=== PATIENT | male | born 1985 | race Hispanic/Latino ===

== ENCOUNTER 2020-02-24 17:19 | Emergency (ER) | payer OTHER, SELFPAY ==
[2020-02-24 17:29] VITALS: BP 165/94; PULSE 91; RESP 18; TEMP 37; O2SAT 99; BMI 30.1
--- NOTE | 2020-02-24 17:35 | DI.RAD.S_ITS ---
PROCEDURE: XR CHEST 1V INDICATIONS: chest pain TECHNIQUE: One view of the chest was acquired. COMPARISON: None. FINDINGS: Surgical changes and devices: Cervical spinal fixation hardware. Lungs and pleura: Lungs are clear. No pleural effusions or pneumothorax. Mediastinum: Mediastinal contours appear normal. Heart size is normal. Bones and chest wall: No suspicious bony lesions. Overlying soft tissues appear unremarkable. IMPRESSION: No acute disease. Dictated by: Silvestre Patterson M.D. on 02/24/2020 at 18:26 Approved by: Silvestre Patterson M.D. on 02/24/2020 at 18:27
[2020-02-24 18:20] LABS: Add Manual Diff / Slide Review NO; Basophils Absolute Auto 100 /uL (0-100); Eosinophils Absolute Auto 100 /uL (0-450); Eosinophils Percent Auto 1.7 % (2-4); Hemoglobin 15.1 g/dL (13.5-17.5); Lymphocytes Absolute Auto 2300 /uL (1100-4500); Lymphocytes Percent Auto 30.6 % (25-40); Mean Corpuscular HGB Conc 34.3 % (30-36); Mean Corpuscular Hemoglobin 28.9 PG (26-34); Mean Corpuscular Volume 84.1 fL (80-100); Monocytes Absolute Auto 500 /uL (0-900); Monocytes Percent Auto 6.5 % (3-14); Neutrophils Absolute Auto 4600 /uL (1500-7000); Neutrophils Percent Auto 60.2 % (50-75); Platelet Count 316 X10^3/uL (150-400); Red Blood Cell Count 5.23 X10^6/uL (4.5-5.9); Red Cell Distribution Width 14.1 % (11.6-14.8); White Blood Cell Count 7.6 X10^3/uL (4.5-11.0)
[2020-02-24 18:38] LABS: Alanine Aminotransferase 44 IU/L (<50); Albumin 4.5 g/dL (3.5-5.0); Albumin Globulin Ratio 1.4 (1.0-2.8); Alkaline Phosphatase 95 U/L (38-126); Aspartate Aminotransferase 34 IU/L (17-59); BUN Creatinine Ratio 25.8 (6-22); Bilirubin Total 0.5 mg/dL (0.2-1.3); Blood Urea Nitrogen 23 mg/dL (9-20); Calcium 9.3 mg/dL (8.4-10.2); Carbon Dioxide 30 mmol/L (22-32); Chloride 103 mmol/L (98-107); Creatine Kinase 84 U/L (55-170); Estimated Glomerular Filt Rate > 60.0 mL/min (>60); Globulin 3.3 g/dL (1.7-4.1); Glucose 116 mg/dL (70-100); HEMOLYSIS < 15 (0-50); Lipase 228 U/L (23-300); Sodium 139 mmol/L (137-145); Total Protein 7.8 g/dL (6.3-8.2)
[2020-02-24 18:39] VITALS: PULSE 83; RESP 17; O2SAT 95
[2020-02-24 18:41] VITALS: BP 112/79; PULSE 77; RESP 18; O2SAT 98
[2020-02-24 18:48] LABS: Troponin I < 0.012 ng/mL (0.01-0.034)
[2020-02-24 18:50] LABS: COVID19 -Nasal RAPID Negative (Negative)
--- NOTE | 2020-02-24 18:56 | ED_ITS ---
HPI - Chest Pain General Chief Complaint: Chest Pain Stated Complaint: Chest Pain, Stabbing Pain, Hard to Breathe Time Seen by Provider: 02/24/20 18:06 Source: patient Mode of arrival: Ambulatory Limitations: no limitations History of Present Illness HPI narrative: Patient brought here by his . Third visit this week to emergency department. First 2 at [facility]. First visit on Wednesday for anxiety given Ativan and Paxil. Second visit yesterday please see notes faxed to us. Had reproducible left-sided chest pain sometimes rate has left arm. Worse with deep breath and palpation. CT scan imaging of the chest no acute process. No PE. EKG unchanged today from yesterday's EKG. Normal sinus rhyt hm. Normal EKG. Denies any primary family history of coronary disease. No aneurysms dissections or in below is a move in the lungs or legs. Patient does not take blood pressure medication or cluster medication, no history of high blood pressure or hypercholesteremia. No recent illness cough cold congestion fever chills. He had a couple episodes of severe sharp stabbing left-sided chest pain at work in this past week. It did make him tearful. Again was reproducible. At this time is not doing heavy exertional work with his employment. Is doing light duty work. No known injury. Has history of cervical spine surgery. Sometimes turning head to the right will trigger the pain in the left chest as well. No numbness tingling or weakness no syncope no diaphoresis. Patient states Wednesday he was anxious however today no anxiety. Related Data Allergies Allergy/AdvReac Type Severity Reaction Status Date / Time No Known Drug Allergies Allergy Verified 02/24/20 17:29 Review of Systems Review of Systems Narrative: GENERAL: Denies chills, fatigue, malaise, fever, sweats. HEENT: Denies sinus pain, ear pain, sore throat, difficulty swallowing RESPIRATORY: Denies dyspnea, cough CARDIOVASCULAR: Complains chest pain, denies palpitations, edema, GASTROINTESTINAL: Denies nausea, vomiting, abdominal pain, diarrhea, constipa tion, melena. : Denies dysuria, frequency, hematuria MUSCULOSKELETAL: denies muscle or bony pain SKIN: Denies rash, skin lesions NEUROLOGIC: Denies weakness, headache, numbness, change in speech, confusion PSYCHIATRIC: No SI or HI or hallucinations ROS Unobtainable: All systems reviewed & are unremarkable except as noted in HPI and below Patient History Social History Smoking Status: Never smoker Smoking Status: Never smoker Substance Use Type: marijuana Exam Narrative Exam Narrative: GENERAL: patient appears stated age. Well-nourished, well- developed patient, in no distress, not toxic not dyspneic HEAD: Normocephalic. EYES: Pupils equal round and reactive. No scleral icterus. No injection no discharge ENT: Mucous membranes moist. No drooling no tongue elevation no trismus no malocclusion NECK: Trachea midline. Non tender CARDIOVASCULAR: Regular rate and rhythm without murmurs, gallops, or rubs. Reproducible left-sided pectoral/breast tenderness on palpation deep breath and movement. RESPIRATORY: Clear to auscultation. Breath sounds equal bilaterally. No wheezes, rales, or rhonchi. GASTROINTESTINAL: Abdomen soft, non-tender, nondistended. EXTREMITIES: No gross deformities. BACK: Nontender without deformity or crepitance. No flank tenderness. NEURO: AOx4. SKIN: Warm and dry PSYCH: Not anxious, is cooperative Initial Vital Signs Initial Vital Signs: Vital Signs Temperature 98.6 F 02/24/20 17:29 Pulse Rate 91 H 02/24/20 17:29 Respiratory Rate 18 02/24/20 17:29 Blood Pressure 165/94 H 02/24/20 17:29 Pulse Oximetry 99 02/24/20 17:29 Scores HEART Score Heart Score history: Slightly Suspicious Heart Score EKG: Normal Heart Score Age: < 45 years old Heart Score risk factors: No known risk factors Heart Score troponin: < or = to normal limit Heart Score Total: 0 Course Course Course Narrative: Time 8:42 p.m.. Patient does not want to be transferred to another hospital or observed side in the hospital for chest pain. Patient de siring stress test and informed him will need to transfer from as we do not have cardiology services here on the weekend. Currently still has left-sided chest pain that is reproducible but unknown family history with his father. Discussed with patient leaving against medical advise, heart attack per minute injury. Patient is awake alert oriented x4. No altered mental status. Orders Ordered: ED Orders 02/24/20 17:35 XR chest 1V Stat EKG-12 Lead Stat 02/24/20 17:40 COVID19 Stat 02/24/20 17:45 Complete Blood Count AUTO DIFF Stat Comprehensive Metabolic Panel Stat Lipase Stat Partial Thromboplastin Time Stat Prothrombin Time INR Stat Troponin & CK Cardiac Panel Stat Discontinued Medications Ketorolac Tromethamine (Ketorolac 60 Mg/2 Ml Vial) 30 mg IV NOW ONE Stop: 02/24/20 18:57 Last Admin: 02/24/20 19:13 Dose: 30 mg Documented by: MMINOR Reevaluation(s) Reevaluation #1: Patient does not want to be admitted or transferred for further observation or stress test. Does not 1 nitro paste at this time. Desires discharge home. Reviewed leaving against medical advice with him. Please see note above. Patient is very cordial, not angry or stressed about decision making. Awake alert oriented x4 Time: 20:43 Vital Signs Vital signs: Vital Signs - 8 hr 02/24/20 17:29 02/24/20 18:39 02/24/20 18:41 Temperature 98.6 F Pulse Rate 91 H 83 77 Respiratory Rate 18 17 18 Blood Pressure 165/94 H 112/79 Pulse Oximetry 99 95 98 02/24/20 19:00 02/24/20 19:01 Temperature Pulse Rate 64 64 Respiratory Rate 20 15 Blood Pressure 108/85 Pulse Oximetry 98 97 MDM - Chest Pain Differential Diagnosis Differential diagnosis: Likely unstable angina pectoris, atypical chest pain, st elevation myocardial infarction, costochondritis and chest pain Medical Records Data Attestation: I reviewed the patient's medical records. Lab Data Attestation: I reviewed the patient's lab results. Result diagrams: 02/24/20 17:45 02/24/20 17:45 Labs: Lab Results 02/24/20 02/24/20 02/24/20 Range/Units 17:40 17:45 17:45 WBC 7.6 (4.5-11.0) X10^3/uL RBC 5.23 (4.5-5.9) X10^6/uL Hgb 15.1 (13.5-17.5) g/dL Hct 44.0 (41-53) % MCV 84.1 (80-100) fL MCH 28.9 (26-34) PG MCHC 34.3 (30-36) % RDW 14.1 (11.6-14.8) % Plt Count 316 (150-400) X10^3/uL Neut % (Auto) 60.2 (50-75) % Lymph % (Auto) 30.6 (25-40) % Pitkin % (Auto) 6.5 (3-14) % Eos % (Auto) 1.7 L (2-4) % Baso % (Auto) 1.0 (0-2) % Neut # (Auto) 4600 (0480-2709) /uL Lymph # (Auto) 2300 (3431-9234) /uL Pitkin # (Auto) 500 (0-900) /uL Eos # (Auto) 100 (0-450) /uL Baso # (Auto) 100 (0-100) /uL PT 12.6 (10.1-12.7) SECONDS INR 1.1 (0.9-1.3) APTT 38 H (26.4-36.2) SECONDS Sodium (137-145) mmol/L Potassium (3.4-5.1) mmol/L Chloride (98-107) mmol/L Carbon Dioxide (22-32) mmol/L BUN (9-20) mg/dL Creatinine (0.66-1.25) mg/dL Estimated GFR (>60) mL/min BUN/Creatinine Ratio (6-22) Glucose (70-100) mg/dL Calcium (8.4-10.2) mg/dL Total Bilirubin (0.2-1.3) mg/dL AST (17-59) IU/L ALT (<50) IU/L Alkaline Phosphatase (38-126) U/L Total Creatine Kinase (55-170) U/L CK-MB (CK-2) CK-MB (CK-2) Rel Index Troponin I (0.01-0.034) ng/mL Total Protein (6.3-8.2) g/dL Albumin (3.5-5.0) g/dL Globulin (1.7-4.1) g/dL Albumin/Globulin Ratio (1.0-2.8) Lipase (23-300) U/L COVID-19 PCR Negative (Negative) 02/24/20 Range/Units 17:45 WBC (4.5-11.0) X10^3/uL RBC (4.5-5.9) X10^6/uL Hgb (13.5-17.5) g/dL Hct (41-53) % MCV (80-100) fL MCH (26-34) PG MCHC (30-36) % RDW (11.6-14.8) % Plt Count (150-400) X10^3/uL Neut % (Auto) (50-75) % Lymph % (Auto) (25-40) % Pitkin % (Auto) (3-14) % Eos % (Auto) (2-4) % Baso % (Auto) (0-2) % Neut # (Auto) (5989-7888) /uL Lymph # (Auto) (0132-3131) /uL Pitkin # (Auto) (0-900) /uL Eos # (Auto) (0-450) /uL Baso # (Auto) (0-100) /uL PT (10.1-12.7) SECONDS INR (0.9-1.3) APTT (26.4-36.2) SECONDS Sodium 139 (137-145) mmol/L Potassium 4.0 (3.4-5.1) mmol/L Chloride 103 (98-107) mmol/L Carbon Dioxide 30 (22-32) mmol/L BUN 23 H (9-20) mg/dL Creatinine 0.89 (0.66-1.25) mg/dL Estimated GFR > 60.0 (>60) mL/min BUN/Creatinine Ratio 25.8 H (6-22) Glucose 116 H (70-100) mg/dL Calcium 9.3 (8.4-10.2) mg/dL Total Bilirubin 0.5 (0.2-1.3) mg/dL AST 34 (17-59) IU/L ALT 44 (<50) IU/L Alkaline Phosphatase 95 (38-126) U/L Total Creatine Kinase 84 (55-170) U/L CK-MB (CK-2) TNP CK-MB (CK-2) Rel Index TNP Troponin I < 0.012 (0.01-0.034) ng/mL Total Protein 7.8 (6.3-8.2) g/dL Albumin 4.5 (3.5-5.0) g/dL Globulin 3.3 (1.7-4.1) g/dL Albumin/Globulin Ratio 1.4 (1.0-2.8) Lipase 228 (23-300) U/L COVID-19 PCR (Negative) Imaging Data Chest x-ray: Radiologist's Impression: [address] [id number] ReportSigned Patient: John Spears AMR#: [id number]: 1985Acct:[id number]/Sex: 34 / MDate of Service: 02/24/20Loc: EDAccession Number: [id number] Procedure: XR chest 1V Ordering Provider: Jill Forbes MD PROCEDURE: XR CHEST 1V INDICATIONS: chest pain TECHNIQUE: One view of the chest was acquired. COMPARISON: None. FINDINGS: Surgical changes and devices: Cervical spinal fixation hardware. Lungs and pleura: Lungs are clear. No pleural effusions or pneumothorax. Mediastinum: Mediastinal contours appear normal. Heart size is normal. Bones and chest wall: No suspicious bony lesions. Overlying soft tissues appear unremarkable. IMPRESSION: No acute disease. Dictated by: Silvestre Patterson M.D. on 02/24/2020 at 18:26 Approved by: Silvestre Patterson M.D. on 02/24/2020 at 18:27 ECG Data Attestation: I personally reviewed and interpreted this ECG as follows: Interpretation: Normal sinus rhythm ventricular rate [address] elevation or depression MDM Narrative Medical decision making narrative: Patient has had 3 visits to the emergency department. This is his 3rd visit today. Troponin remains normal. Low heart score. No history of high blood pressure high cholesterol or primary family history of coronary disease. Patient is less than 45 years of age. Normal EKG. Normal troponins. Reproducible chest wall pain. Likely costochondritis. However patient desires stress test and we do not have resources here at this facility on the weekend. I did discuss this to him for transfer to another facility but he declined. Please see note above for leaving against medical advice. Implored with patient to be admitted observed or transferred for further evaluation. He refused. Discharge Plan Departure Patient Disposition: Left Against Medical Advice Clinical Impression: Chest pain Qualifiers: Chest pain type: unspecified Qualified Code(s): R07.9 - Chest pain, unspecified Activity Restrictions/Additional Instructions: Return immediately if worse or if you change your mind to be admitted or transferred. Stand Alone Forms: Against Medical Advice, Work Release Note
[2020-02-24 19:00] VITALS: PULSE 64; RESP 20; O2SAT 98
[2020-02-24 19:01] VITALS: BP 108/85; PULSE 64; RESP 15; O2SAT 97
[2020-02-24] MEDS: KETOROLAC 60 MG/2 ML VIAL 30 MG IV (19:13)
[2020-02-24 19:40] LABS: INR 1.1 (0.9-1.3); Prothrombin Time 12.6 SECONDS (10.1-12.7)
[2020-02-24 19:42] LABS: PTT Partial Thromboplastin Tim 38 SECONDS (26.4-36.2)
== END 2020-02-24 21:01 | disposition left against medical advice (07) ==
PROVIDERS: Emergency Medicine; Emergency Provider Emergency Medicine
DX: R07.9 Chest pain, unspecified (principal)
CPT/HCPCS: 36415; 71045; 80053; 82550; 83690; 84484; 85025; 85610; 85730; 87635; 93005; 93010; 96374; 99284; J1885